=== PATIENT | female | born 1935 | race Caucasian/White ===

== ENCOUNTER → 2021-11-29 14:09 | Outpatient (CLI) | payer MEDICARE, OTHER, SELFPAY ==
--- NOTE | 2021-11-29 14:13 | DI.RAD.S_ITS ---
PROCEDURE: XR ABDOMEN MIN 2V INDICATIONS: Constipation TECHNIQUE: 2 views of the abdomen were acquired. COMPARISON: None. FINDINGS: Surgical changes and devices: Partially visualized cardiac electrode leads. Bowel: High stool burden, along with gas. Soft tissues: No masses; visualized solid organ contours appear normal in size. No suspicious abdominal calcifications. Bones: Spinal curvature and hip degenerative changes. IMPRESSION: High stool burden. No acute radiographic abnormality otherwise. Dictated by: Rian Cochran M.D. on 11/29/2021 at 16:10 Approved by: Rian Cochran M.D. on 11/29/2021 at 16:11
== END ==
PROVIDERS: Referring Provider Nurse Practitioner Family; Visit Provider Nurse Practitioner Family
DX: K59.00 Constipation, unspecified (principal)
CPT/HCPCS: 74019